=== PATIENT | male | born 1940 | race Caucasian/White ===

== ENCOUNTER → 2025-01-03 10:03 | Outpatient (REF) | payer MEDICARE, OTHER, SELFPAY | LOC: HWRAD 10:03 | PROVIDERS: ATTENDING PHYSICIAN Family Medicine | DX: M54.30 Sciatica, unspecified side (principal); S33.5XXS Sprain of ligaments of lumbar spine, sequela; M54.50 Low back pain, unspecified | CPT/HCPCS: 72100; 73502 ==